=== PATIENT | female | born 1950 | race Caucasian/White ===

== ENCOUNTER 2023-11-30 13:24 | Emergency (ER) | payer MEDICARE ==
[~2023-11-30] VITALS: Ht 167.6 cm; Wt 63.5 kg
[~2023-11-30 13:24] MED LIST: ATOR20 PO; DOXY100 PO; HYDCHL25; LISI20 PO
[2023-11-30 14:12] LABS: BASOPHILS ABSOLUTE AUTO 0.03 K/mm3 (0.00-0.23); BASOPHILS PERCENT AUTO 1 % (0-2); EOSINOPHILS ABSOLUTE AUTO 0.01 K/mm3 (0.00-0.68); EOSINOPHILS PERCENT AUTO 0 % (0-6); Hematocrit 36.6 % (33.0-51.0); Hemoglobin 11.9 g/dL (11.5-16.0); IMMATURE GRAN ABSOLUTE AUTO 0.01 K/mm3 (0.00-0.10); IMMATURE GRAN PERCENT AUTO 0 % (0-1); LYMPHOCYTES PERCENT AUTO 13 % (21-46); MONOCYTES ABSOLUTE AUTO 0.34 K/mm3 (0.16-1.47); MONOCYTES PERCENT AUTO 6 % (4-13); Mean Corpuscular HGB 29.3 pg (26.0-34.0); Mean Corpuscular HGB Conc 32.5 g/dL (31.5-36.5); Mean Corpuscular Volume 90 fL (80-100); Mean Platelet Volume 9.1 fL (9.1-12.4); NEUTROPHILS ABSOLUTE AUTO 4.91 K/mm3 (1.96-9.15); NEUTROPHILS PERCENT AUTO 80 % (41-73); Platelet Count 208 K/mm3 (150-400); RDW Coefficient Variation 12.5 % (11.7-14.2); RDW Standard Deviation 41.1 fL (35.1-46.3); Red Blood Cell Count 4.06 M/mm3 (3.80-5.20)
[2023-11-30 14:34] LABS: Albumin, Blood 3.9 g/dL (3.4-5.0); Albumin/Globulin Ratio 1.2 (0.8-1.8); Bilirubin, Total 0.9 mg/dL (0.1-1.0); Bun/Creatinine Ratio 20.2 (12.0-20.0); Calcium, Blood 9.5 mg/dL (8.5-10.1); Creatinine, Blood 0.74 mg/dL (0.40-1.00); Globulin, Blood 3.3 g/dL (2.2-4.0); Potassium, Blood 3.6 mmol/L (3.5-5.5); Total Protein, Blood 7.2 g/dL (6.4-8.2)
[2023-11-30 14:42] VITALS: BP 156/71
== END 2023-11-30 15:01 | disposition home or self-care (01) ==
LOC: ER 13:24
PROVIDERS: Physician Assistant
DX: I10 Essential (primary) hypertension (principal); Z79.899 Other long term (current) drug therapy
CPT/HCPCS: 80053; 85025; 93005; 93010; 99283-25

== ENCOUNTER 2024-11-12 09:53 | Day surgery (SDC) | payer MEDICARE ==
[~2024-11-12] VITALS: Ht 162.6 cm; Wt 67.9 kg
[~2024-11-12 09:53] MED LIST changes: +Balanced Salt Epinephrine Irrigation Solution 500 mL IR SCH; +Moxifloxacin HCL 0.5 MG/0.1 ML 0.4MLSYR LEFTEYE SCH; +NS 500 ML IV ONE; +NS 500 ML ONE; +PHENYLEPHRINE\\TROPICAMIDE\\TETRACAINE OPHTHALMIC DILATING SOLN LEFTEYE PRN; +Povidone-Iodine 450 DROP/30 ML Solution LEFTEYE SCH; +Povidone-Iodine 450 DROP/30 ML Solution ONE; +Tetracaine HCl/Pf 0.5% Opth Soln 4 ml ONE
[2024-11-12] MEDS ORDERED: METO25ER (10:14)
[2024-11-12] MEDS ORDERED: NS 500 ML IV ONE (10:17)
[2024-11-12] MEDS ORDERED: Midazolam HCl 1MG / ML 2ML Vial ONE ×2 (11:14→11:17)
[2024-11-12 11:38] VITALS: BP 125/69
== END 2024-11-12 11:49 | disposition home or self-care (01) ==
LOC: ORSCSDS 09:53
PROVIDERS: Student in an Organized Health Care Education/Training Program
PROC: 08RK3JZ Replacement of Left Lens with Synthetic Substitute, Percutaneous Approach (ICD-10-PCS; principal; 2024-11-12 11:30)
DX: H25.813 Combined forms of age-related cataract, bilateral (principal); I10 Essential (primary) hypertension; Z79.899 Other long term (current) drug therapy; H52.202 Unspecified astigmatism, left eye
CPT/HCPCS: J2250; J7040; V2632

== ENCOUNTER 2024-11-26 09:04 | Day surgery (SDC) | payer MEDICARE ==
[~2024-11-26] VITALS: Ht 162.6 cm; Wt 67.5 kg
[~2024-11-26 09:04] MED LIST changes: +METO25ER; -Moxifloxacin HCL 0.5 MG/0.1 ML 0.4MLSYR LEFTEYE SCH; +Moxifloxacin HCL 0.5 MG/0.1 ML 0.4MLSYR RIGHTEYE SCH; -NS 500 ML IV ONE; -NS 500 ML ONE; -PHENYLEPHRINE\\TROPICAMIDE\\TETRACAINE OPHTHALMIC DILATING SOLN LEFTEYE PRN; +PHENYLEPHRINE\\TROPICAMIDE\\TETRACAINE OPHTHALMIC DILATING SOLN RIGHTEYE PRN; -Povidone-Iodine 450 DROP/30 ML Solution LEFTEYE SCH; +Povidone-Iodine 450 DROP/30 ML Solution RIGHTEYE SCH
--- NOTE | 2024-11-26 09:29 | NUR ---
11/26/24 09 Arti Gross TETRACAINE IN AT 0925 PLEDGETT IN AT 0926 PT TOLERATED WELL CALL LIGHT IN REACH, BED RAILS UP.
[2024-11-26] MEDS ORDERED: Midazolam HCl 1MG / ML 2ML Vial ONE (09:36)
[2024-11-26] MEDS ORDERED: FentaNYL Citrate 50 MCG/ML 2 ML Injection ONE (09:36)
[2024-11-26 10:39] VITALS: BP 122/63
--- NOTE | 2024-11-26 10:40 | NUR ---
11/26/24 1040 Rosalba Sharp RIGHT EYE WITH SMALL BROKEN BLOOD VESSEL IN IT, MD LINDSEY AWARE. NO FURTHER ORDERS.
== END 2024-11-26 10:48 | disposition home or self-care (01) ==
LOC: ORSCSDS 09:04
PROVIDERS: Student in an Organized Health Care Education/Training Program
PROC: 08RJ3JZ Replacement of Right Lens with Synthetic Substitute, Percutaneous Approach (ICD-10-PCS; principal; 2024-11-26 10:30)
DX: H25.811 Combined forms of age-related cataract, right eye (principal); H52.201 Unspecified astigmatism, right eye; Z96.1 Presence of intraocular lens; I10 Essential (primary) hypertension; Z79.899 Other long term (current) drug therapy
CPT/HCPCS: J2250; J3010; J7120; V2632